=== PATIENT | female | born 1990 | race African-American/Black ===

== ENCOUNTER 2018-10-04 16:43 | Inpatient (IN) | payer OTHER ==
[2018-10-04] MEDS ORDERED: LACTATED RINGERS 1,000 ML IV ONE ×4 (17:02→18:30)
[2018-10-04] MEDS ORDERED: CITRIC ACID/SODIUM CITRATE 15 ML UDC PO ONE (17:03)
[2018-10-04 17:13] LABS: BASOPHILS % (AUTO) 0.3 %; EOSINOPHILS # (AUTO) 0.1 10^3/uL (0.0-0.7); EOSINOPHILS % (AUTO) 0.7 %; HGB - HEMOGLOBIN 11.9 g/dL (12.0-16.0); LYMPHOCYTES # (AUTO) 1.8 10^3/uL (1.5-3.5); MEAN CORPUSCULAR HEMOGLOBIN 27.2 pg (27.0-31.0); MEAN CORPUSCULAR HGB CONC 32.2 g/dL (32.0-36.0); MEAN CORPUSCULAR VOLUME 84.2 fL (81.0-99.0); MEAN PLATELET VOLUME 12.4 fL (7.9-10.8); MONOCYTES # (AUTO) 0.8 10^3/uL (0.0-1.0); MONOCYTES % (AUTO) 11.4 %; NEUTROPHILS # (AUTO) 4.1 10^3/uL (1.5-6.6); NEUTROPHILS % (AUTO) 60.2 %; PLT - PLATELET COUNT 170 10^3/uL (130-450); RED BLOOD COUNT 4.38 10^6/uL (4.20-5.40); RED CELL DISTRIBUTION WIDTH 14.1 % (12.0-15.0); WHITE BLOOD COUNT 6.8 x10^3/uL (4.8-10.8)
--- NOTE | 2018-10-04 17:34 | ANESTHESIA ---
Pre-Anesthesia VS, & Labs - Diagnosis non-reassuring heart rate and biophysics - Procedure section - NPO >8 hours - Is Patient ?: Yes - Lab Results Fish Bones: 10/04/18 17:04 Home Medications and Allergies Allergies/Adverse Reactions: Allergies Allergy/AdvReac Type Severity Reaction Status Date / Time No Known Drug Allergies Allergy Verified 10/04/18 17:04 Anes History & Medical History - Anesthetic History Anesthesia Complications: reports: No previous complications Exam General: Alert Dental: WNL Mouth Opening: Greater than 4 Fingerbreadths Mallampati classification: II Thyromental Distance: greater than 6 cm Respiratory: Lungs clear Cardiovascular: Regular rate Plan Anesthesia Type: Spinal Consent for Procedure(s) Verified and Reviewed: Yes Code Status: Attempt Resuscitation ASA classification: 2-Mild systemic disease Is this case an emergency?: Yes
--- NOTE | 2018-10-04 17:35 | PREOP HISTORY & PHYSICAL ---
DATE OF SERVICE: 10/04/2018 Physician: Anjum Evans MD IDENTIFICATION: The patient is a 28-year-old G2, P1, female whose due date is 10/17/2018 by [facility]. HISTORY OF PRESENT ILLNESS: She was seen in the clinic at [facility] today, at which time she was noted to have some dips in her heart beat. She was placed on the monitor with a baseline, which appeared to be good, but evidence of some dips. She underwent a biological profile, which was scored as a 4/8. She was also noted to have a nuchal cord x2, which was felt to be tight. For this reason, because they were closed, she was transferred to our hospital for evaluation and care. The patient relates that her care has been unremarkable. Previous delivery was unremarkable. Up until this point, she has been doing well. PAST MEDICAL HISTORY: Patient denies any hypertensive, diabetic, cardiac or pulmonary disease. PAST SURGICAL HISTORY: Positive for ankle repair. ALLERGIES: NONE KNOWN. CURRENT MEDICATIONS: vitamins. HABITS: The patient denies use of alcohol, tobacco, street or addictive drugs. 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 PHYSICAL EXAMINATION GENERAL: Well-developed, well-nourished, black female. She is in no acute distress. HEENT: Pupils are equal, round. Extraocular muscles intact. Thyroid is not palpably enlarged. HEART: Regular rate and rhythm without murmurs. LUNGS: Lung avila are clear without rales or wheezes. ABDOMEN: Gravid, nontender. She is not undergoing any contractions. GENITOURINARY: Her cervical examination is closed and very high and the head is not in the pelvis at this time. IMPRESSION: 1. A 38+ week gestation. 2. Nonreassuring testing. 3. Remote from delivery. 4. 4/8 biophysical profile with nuchal cord x2. At this particular time discussed with the patient in view of the risks of the prolonged need for induction it was decided to proceed on with section. Risks and benefits were explained to the patient, including those, but not limited to bleeding, infection, injury to pelvic organs, which include the uterus, tubes, ovaries, bowel, bladder and ureters. She is aware of the potential for DVT with PE as well as postoperative adhesion which could cause pain, bowel obstruction and infertility. TD: 10/04/2018 17:11 [email or web address]
[2018-10-04] MEDS ORDERED: miSOPROStol 200 MCG TABLET ONE (17:48)
[2018-10-04] MEDS ORDERED: CARBOPROST TROMETHAMINE 250 MCG/ML AMP IM ONE ×2 (17:49→21:26)
[2018-10-04] MEDS ORDERED: METHYLERGONOVINE 0.2 MG/ML AMP ONE (17:50)
[2018-10-04] MEDS: KETOROLAC 30 MG/ML VIAL IVP SCH (18:00)
[2018-10-04] MEDS ORDERED: OXYTOCIN 10 UNIT/ML VIAL IM ONE (18:47)
[2018-10-04] MEDS ORDERED: diphenhydrAMINE 25 MG CAPSULE PO PRN (18:47)
[2018-10-04] MEDS ORDERED: SODIUM CHLORIDE FLUSH 0.9% 10 ML SYRINGE IVP PRN (18:47)
[2018-10-04] MEDS ORDERED: ONDANSETRON 4 MG/2 ML VIAL IVP PRN (18:47)
[2018-10-04] MEDS ORDERED: LACTATED RINGERS 1,000 ML IV SCH (19:00)
--- NOTE | 2018-10-04 19:00 | OPERATIVE REPORT ---
Operative Report - General Admit Date: 10/04/18 Procedure Date: 10/04/18 Planned Procedure: PLTC/S Pre-Op Diagnosis: 38 week Gestation, nonreassureing antnataltesting, nucal cord times 2 Procedure Performed: PLTC/S Post Op Diagnosis: Same - Procedure Note Primary Surgeon: Anjum Evans MD Secondary Surgeon: Aniket Alvarado MD Anesthesia Provider: Kristin Luna CRNA Anesthesia Technique: Spinal Pathology: Placenta IV Fluids (mL): 2,000 Estimated Blood Loss (mL): 500 Urine Output (mL): 175 Complications: none - Other Other Information/Narrative: Dictation # [id number]
[2018-10-04] MEDS: ACETAMINOPHEN 500 MG TABLET PO SCH (20:51)
[2018-10-04] MEDS: oxyCODONE 5 MG TABLET PO PRN (20:51)
[2018-10-04] MEDS: DOCUSATE SODIUM 100 MG CAPSULE PO SCH (20:51)
--- NOTE | 2018-10-04 22:00 | OPERATIVE REPORT ---
DATE OF SERVICE: 10/04/2018 Physician: Anjum Evans MD PREOPERATIVE DIAGNOSES 1. A 38 weeks' gestation. 2. Nonreassuring testing. 3. Nuchal cord x2. 4. Transfer from [facility]. POSTOPERATIVE DIAGNOSES 1. A 38 weeks' gestation. 2. Nonreassuring testing. 3. Nuchal cord x2. 4. Transfer from [facility]. PROCEDURE PERFORMED: Planned primary low transverse section. SURGEON: Anjum Evans MD [employer] AUT[employer]IVE TECHNICIAN: Aniket Alvarado DO ANESTHESIA: Spinal with Marika Luna CRNA ESTIMATED BLOOD LOSS: 500 mL IV FLUIDS: 2000 mL URINE OUTPUT: 175 mL DRAINS AND PACKS: None. COMPLICATIONS: None. MATERIAL TO PATHOLOGY: Placenta DESCRIPTION OF PROCEDURE: Following adequate spinal anesthesia, the patient was placed in the supine position with a roll under the right hip. At this point, a timeout was performed in which the patie nt's identity and concerns were identified. She was then prepped and draped in the usual fashion. A Wren catheter was placed under sterile conditions. At this point, following assuring good anesthes ia, a Pfannenstiel incision was carried down through the subcutaneous tissue to the fascia. The fasc ia was incised transversely, then using both blunt and sharp dissection was freed from the rectus abd ominis and pyramidalis. The rectus was split along the midline. Peritoneum was entered high. Care was taken to avoid any injury to bowel or bladder. At this point, a bladder flap was developed using both blunt and sharp dissection. A low transverse uterine incision was accomplished using a #10 inocencio de with extension with bandage scissors. The head of the infant was noted not to be engaged in the p vonda. It was then delivered through the incision. The remainder of the infant was delivered withou t difficulty. The cord was doubly clamped and divided, and the infant was handed to the nursery team and pediatricians that were standing by. Cord blood samples were obtained. Following this, the nohemi james was exteriorized, wrapped in a moist lap, cleansing the internal portion with a dry lap. The cer vix was then dilated with a ring forceps and then the incision was closed using a running locking sut ure of 0 Vicryl with an imbricating layer of 0 Vicryl. The incision was inspected for bleeding. The re was a small bleeding at the right side of the incision, which was treated with a jjgilh-[id number] s uture. The uterus was tipped forward. The cul-de-sac was suctioned of any clot. Estimated blood lo ss was done at this time and then the pelvis was irrigated with copious amounts of sterile saline. T he uterus was delivered back in the abdominal cavity, and following this the gutters were likewise in spected. The incision was inspected. No further bleeding was noted, so the incision was closed usin g 2-0 Vicryl in a running suture. Rectus was then reapproximated at the upper apex of the pyramidali s with a single [id number]. The rectus was inspected and no bleeding noted, so the fascia was c losed utilizing looped PDS. The subcutaneous tissue was irrigated, no bleeding noted, and so the sub cutaneous tissue was closed using 2-0 Vicryl. The incision itself was closed using 4-0 Monocryl and the incision was dressed with Mastisol, as well as Steri-Strips. There was some oozing coming from t he incision and this was treated with direct pressure and the incision was responded well. The proce dure was then terminated. The patient was taken to recovery in stable condition. Sponge and needle counts were correct. TD: 10/04/2018 19:08
[2018-10-05] MEDS: KETOROLAC 30 MG/ML VIAL IVP SCH ×3 (00:35→13:29)
[2018-10-05] MEDS: oxyCODONE 5 MG TABLET PO PRN ×6 (00:35→23:05)
[2018-10-05] MEDS ORDERED: SODIUM CHLORIDE FLUSH 0.9% 10 ML SYRINGE IVP SCH (01:00)
[2018-10-05] MEDS: SIMETHICONE CHEW 80 MG TABLET PO SCH ×4 (02:03→21:08)
[2018-10-05] MEDS: ACETAMINOPHEN 500 MG TABLET PO SCH ×3 (05:01→21:08)
[2018-10-05 06:10] LABS: BASOPHILS % (AUTO) 0.3 %; EOSINOPHILS % (AUTO) 0.4 %; HGB - HEMOGLOBIN 10.5 g/dL (12.0-16.0); LYMPHOCYTES % (AUTO) 13.9 %; MEAN CORPUSCULAR HEMOGLOBIN 26.5 pg (27.0-31.0); MEAN CORPUSCULAR HGB CONC 31.9 g/dL (32.0-36.0); MEAN CORPUSCULAR VOLUME 83.1 fL (81.0-99.0); MEAN PLATELET VOLUME 12.4 fL (7.9-10.8); MONOCYTES # (AUTO) 0.9 10^3/uL (0.0-1.0); MONOCYTES % (AUTO) 12.4 %; NEUTROPHILS # (AUTO) 5.2 10^3/uL (1.5-6.6); NEUTROPHILS % (AUTO) 72.6 %; PLT - PLATELET COUNT 123 10^3/uL (130-450); RED BLOOD COUNT 3.96 10^6/uL (4.20-5.40); RED CELL DISTRIBUTION WIDTH 14.1 % (12.0-15.0); WHITE BLOOD COUNT 7.2 x10^3/uL (4.8-10.8)
--- NOTE | 2018-10-05 07:22 | PROVIDER PROGRESS NOTE ---
Subjective - General Admit Date: 10/04/18 Procedure Date: 10/04/18 Post Op Days: 1 Procedure Performed: PLTC/S - Review of Systems Wound/Incisions: positive: Dressing dry and intact Drain Type: none General: positive: No symptoms (Pain 2/10 no flatus, arriaza draining) HEENT: positive: No symptoms Pulmonary: positive: No symptoms Cardiovascular: positive: No symptoms Gastrointestinal: positive: No symptoms Genitourinary: positive: No symptoms Musculoskeletal: positive: No symptoms Objective - Patient Data Reviewed Vital Signs: Yes Vital Signs: Vital Signs x48h Temp Pulse Resp BP Pulse Ox 10/05/18 04:59 36.9 C 69 16 97/50 L 98 10/05/18 02:57 36.8 C 91 16 116/64 99 10/05/18 01:30 15 98 10/05/18 00:21 36.4 C L 79 15 111/47 L 99 Weight: Weight 10/03/18 10/04/18 10/05/18 23:59 23:59 23:59 Weight (kg) 110 kg Intake & Output: Intake and Output Totals x24h 10/03/18 10/04/18 10/05/18 23:59 23:59 23:59 Output Total 575 900 Balance -575 900 - Lab Results Lab Results: 10/05/18 05:55 Other Lab Results: Lab Results x24hrs 10/05/18 10/04/18 10/04/18 Range/Units 05:55 17:15 17:04 WBC 7.2 (4.8-10.8) x10^3/uL RBC 3.96 L (4.20-5.40) 10^6/uL Hgb 10.5 L (12.0-16.0) g/dL Hct 32.9 L (37.0-47.0) % MCV 83.1 (81.0-99.0) fL MCH 26.5 L (27.0-31.0) pg MCHC 31.9 L (32.0-36.0) g/dL RDW 14.1 (12.0-15.0) % Plt Count 123 L (130-450) 10^3/uL MPV 12.4 H (7.9-10.8) fL Neut # (Auto) 5.2 (1.5-6.6) 10^3/uL Lymph # (Auto) 1.0 L (1.5-3.5) 10^3/uL Phelps # (Auto) 0.9 (0.0-1.0) 10^3/uL Eos # (Auto) 0.0 (0.0-0.7) 10^3/uL Baso # (Auto) 0.0 (0.0-0.1) 10^3/uL Absolute Nucleated RBC 0.00 x10^3/uL Nucleated RBC % 0.0 /100WBC Blood Type O POSITIVE Blood Type Recheck O POSITIVE 10/04/18 Range/Units 17:04 WBC 6.8 (4.8-10.8) x10^3/uL RBC 4.38 (4.20-5.40) 10^6/uL Hgb 11.9 L (12.0-16.0) g/dL Hct 36.9 L (37.0-47.0) % MCV 84.2 (81.0-99.0) fL MCH 27.2 (27.0-31.0) pg MCHC 32.2 (32.0-36.0) g/dL RDW 14.1 (12.0-15.0) % Plt Count 170 (130-450) 10^3/uL MPV 12.4 H (7.9-10.8) fL Neut # (Auto) 4.1 (1.5-6.6) 10^3/uL Lymph # (Auto) 1.8 (1.5-3.5) 10^3/uL Phelps # (Auto) 0.8 (0.0-1.0) 10^3/uL Eos # (Auto) 0.1 (0.0-0.7) 10^3/uL Baso # (Auto) 0.0 (0.0-0.1) 10^3/uL Absolute Nucleated RBC 0.00 x10^3/uL Nucleated RBC % 0.0 /100WBC Blood Type Blood Type Recheck - Current Medications Current Medications: Current Medications Generic Name Dose Route Start Last Admin Trade Name Freq PRN Reason Stop Dose Admin Acetaminophen 1,000 mg 10/04/18 19:00 10/05/18 05:01 Tylenol PO 1,000 mg Q8H GISELL Administration Docusate Sodium 100 mg 10/04/18 21:00 10/04/18 20:51 Colace 100mg Capsule PO 100 mg BID GISELL Administration Lactated Ringer's 1,000 mls @ 100 mls/hr 10/04/18 19:00 10/04/18 22:07 Lr IV 100 mls/hr .Q10H GISELL Administration Ketorolac Tromethamine 30 mg 10/04/18 19:00 10/05/18 06:55 Toradol Inj (30mg) IVP 10/05/18 13:01 30 mg Q6H GISELL Administration Ondansetron HCl 4 mg 10/04/18 18:47 10/05/18 00:20 Zofran Inj IVP 4 mg Q4H PRN Administration Nausea / Vomiting Oxycodone HCl 5 mg 10/04/18 18:47 10/05/18 05:00 Roxicodone PO 5 mg Q4HR PRN Administration PAIN Simethicone 80 mg 10/04/18 22:00 10/05/18 05:01 Mylicon PO 80 mg TID GISELL Administration - Physical Exam Wound/Incisions: positive: Dressing dry and intact General Appearance: positive: No acute distress, Alert Eyes Bilateral: positive: PERRL Respiratory: positive: Chest non-tender, No respiratory distress, Breath sounds nml Cardiovascular: positive: Regular rate & rhythm, No murmur, No gallop Abdomen: positive: Nml bowel sounds, No distention, Tenderness (mild) Back: negative: CVA tenderness (R), CVA tenderness (L) Skin: positive: Color nml, No rash Extremities: negative: Calf tenderness, Robyn's sign/cords Neurologic/Psychiatric: positive: Oriented x3 Impression/Plan - Problem List Problem List: POD # 1 progressing well remove arriaza noon ambulate
[2018-10-05] MEDS: DOCUSATE SODIUM 100 MG CAPSULE PO SCH ×2 (09:10→21:08)
[2018-10-05] MEDS ORDERED: MORPHINE PF 5 MG/10 ML AMP EP ONE (15:09)
[2018-10-05] MEDS ORDERED: ACETAMINOPHEN 1,000 MG/100 ML 100 ML IV ONE (15:09)
[2018-10-05] MEDS ORDERED: KETOROLAC 30 MG/ML VIAL IVP ONE (15:09)
[2018-10-05] MEDS ORDERED: OXYTOCIN 10 UNIT/ML VIAL IV ONE (15:09)
[2018-10-05] MEDS: IBUPROFEN 800 MG TABLET PO PRN (21:08)
[2018-10-06] MEDS: oxyCODONE 5 MG TABLET PO PRN ×3 (03:14→14:25)
[2018-10-06] MEDS: ACETAMINOPHEN 500 MG TABLET PO SCH ×2 (05:20→14:25)
--- NOTE | 2018-10-06 08:48 | PROVIDER PROGRESS NOTE ---
Subjective - General Admit Date: 10/04/18 Procedure Date: 10/04/18 Post Op Days: 2 Procedure Performed: PLTC/S - Review of Systems Wound/Incisions: positive: Healing well Drain Type: none General: positive: No symptoms (Pain 2/10 no flatus, voiding, passing flatus) HEENT: positive: No symptoms Pulmonary: positive: No symptoms Cardiovascular: positive: No symptoms Gastrointestinal: positive: No symptoms Genitourinary: positive: No symptoms Musculoskeletal: positive: No symptoms Objective - Patient Data Reviewed Vital Signs: Yes Vital Signs: Vital Signs x48h Temp Pulse Resp BP Pulse Ox 10/06/18 02:00 37.1 C 80 16 123/76 98 10/06/18 01:36 37.3 C 79 16 126/78 99 Weight: Weight 10/04/18 10/05/18 10/06/18 23:59 23:59 23:59 Weight (kg) 110 kg Intake & Output: Intake and Output Totals x24h 10/04/18 10/05/18 10/06/18 23:59 23:59 23:59 Intake Total 1360 Output Total 575 1700 Balance -575 -340 - Lab Results Lab Results: 10/05/18 05:55 - Current Medications Current Medications: Current Medications Generic Name Dose Route Start Last Admin Trade Name Freq PRN Reason Stop Dose Admin Acetaminophen 1,000 mg 10/04/18 19:00 10/06/18 05:20 Tylenol PO 1,000 mg Q8H GISELL Administration Docusate Sodium 100 mg 10/04/18 21:00 10/05/18 21:08 Colace 100mg Capsule PO 100 mg BID GISELL Administration Lactated Ringer's 1,000 mls @ 100 mls/hr 10/04/18 19:00 10/05/18 05:30 Lr IV Infused .Q10H GISELL Infusion Ibuprofen 800 mg 10/05/18 07:23 10/05/18 21:08 Motrin PO 800 mg BID PRN Administration PAIN Ondansetron HCl 4 mg 10/04/18 18:47 10/05/18 00:20 Zofran Inj IVP 4 mg Q4H PRN Administration Nausea / Vomiting Oxycodone HCl 5 mg 10/04/18 18:47 10/06/18 03:14 Roxicodone PO 5 mg Q4HR PRN Administration PAIN Simethicone 80 mg 10/04/18 22:00 10/05/18 21:08 Mylicon PO 80 mg TID GISELL Administration Sodium Chloride 10 ml 10/04/18 18:47 10/05/18 13:29 Normal Saline Flush 0.9% IVP 10 ml PRN PRN Administration NEEDED PER PROVIDER ORDERS Sodium Chloride 10 ml 10/05/18 01:00 10/05/18 13:29 Normal Saline Flush 0.9% IVP 10 ml 0100,0900,1700 GISELL Administration - Physical Exam Wound/Incisions: positive: Healing well, No drainage General Appearance: positive: No acute distress, Alert Respiratory: positive: Chest non-tender, No respiratory distress, Breath sounds nml Cardiovascular: positive: Regular rate & rhythm, No murmur, No gallop Abdomen: positive: Non-tender, Nml bowel sounds, No distention Back: negative: CVA tenderness (R), CVA tenderness (L) Extremities: negative: Calf tenderness, Robyn's sign/cords Neurologic/Psychiatric: positive: Oriented x3 Impression/Plan - Problem List Problem List: POD # 2 progressing well consider Discharge ain the afternoon. Discharge meds Oxycodone 5 mg #25 Motrin 800 mg # 30 Colace 100 mg # 30
[2018-10-06] MEDS: DOCUSATE SODIUM 100 MG CAPSULE PO SCH (09:28)
[2018-10-06] MEDS: SIMETHICONE CHEW 80 MG TABLET PO SCH ×2 (09:28→14:25)
[2018-10-06] MEDS: IBUPROFEN 800 MG TABLET PO PRN ×2 (09:28→17:59)
[2018-10-06 16:43] VITALS: BP 128/67
--- NOTE | 2018-10-06 17:46 | Discharge Plan ---
Discharge Plan Problem Reviewed?: Yes Disposition: Home, Self Care Condition: Good Diet: Regular Activity Restrictions: pelvic rest Shower Restrictions: No Driving Restrictions: Yes (not while on narcotics) Weight Bearing: Full Weight No Smoking: If you smoke, Please STOP! Call for help.
--- NOTE | 2018-10-12 16:07 | DISCHARGE SUMMARY ---
Physician: Anjum Evans MD DATE OF ADMISSION: 10/04/2018 DATE OF DISCHARGE: 10/06/2018 ADMITTING DIAGNOSES 1. A 28-year-old G2, P1. Due date is 10/17/2018. 2. Active labor. DISCHARGE DIAGNOSES 1. A 28-year-old G2, P1. 2. Nonreassuring monitoring. 3. Remote from delivery. PROCEDURE: Primary low transverse section. PRESENTING HISTORY: The patient is a 28-year-old G2, P1 female who is a patient of [facility]. She had been seen by her OB provider there throughout the entire . She had early v isits and good OB care. She presented to the base, at which time she was noted to have some dips in the heartbeat. She was placed on the monitor. She had a biophysical profile, which was noted to be 5/8. There were also 2 nuchal cords found at time of ultrasound. Because they were closed, they tian cted to transfer her to the hospital for continued care. LABORATORIES: CBC on admission showed a white count of 6.8, hemoglobin 11.9. Platelets were 170. F irst day postop, white count was 7.2. Hemoglobin was 10.5. Platelets were 123. HOSPITAL COURSE: The patient presented to labor and delivery and because of nonreassuring lotus toring, the low biophysical profile, the patient being remote from delivery, it was decided to procee d on with section. This was performed without difficulty. At time of delivery, a live male with clear amniotic fluid was noted with a tight nuchal cord x2. Her course was u nremarkable. Diet was returned. Her control of her lower extremities was also returned. She was di scharged to home on the second day postop. DISCHARGE MEDICATIONS Those of: 1. Oxycodone 5 mg, #25. 2. Motrin 800 mg, #30. 3. Colace 100 mg, #30. She is instructed to follow up in the clinic in 1 week, at which time would will be assessed. TD: 10/12/2018 15:35
== END 2018-10-06 18:15 | disposition home or self-care (01) | DRG 788 ==
LOC: WFO 16:43 → FBP 16:44 → WFO 17:04 → FBP 17:05
PROVIDERS: ADMIT Obstetrics & Gynecology; ATTEND Obstetrics & Gynecology
PROC: 10D00Z1 Extraction of Products of Conception, Low, Open Approach (ICD-10-PCS; principal; 2018-10-04 17:08)
DX: O76 Abnormality in fetal heart rate and rhythm complicating labor and delivery (principal); O69.2XX0 Labor and delivery complicated by other cord entanglement, with compression, not applicable or unspecified; Z3A.38 38 weeks gestation of pregnancy; Z37.0 Single live birth
CPT/HCPCS: 36415; 85025; 86900; 86901; A9270; J0131; J7120; 86850

== ENCOUNTER 2019-10-04 15:49 | Emergency (ER) | payer OTHER ==
--- NOTE | 2019-10-04 16:43 | ED Physician Documentation ---
History of Present Illness - Stated complaint Stated Complaint: SORE THROAT - Chief complaint Chief Complaint: Heent - History obtained from History obtained from: Patient - History of Present Illness Timing: Prior to arrival, How many days ago (2) Pain level max: 8 Pain level now: 2 - Additonal information Additional information: 29-year-old female presents to the emergency department with chief complaint of a sore throat. She states that about 2 days ago she was getting ready to eat some pasta and she felt something enter her mouth and throat. She feels like her throat was scratched. Since then she has been having difficulty swallowing and feels that her voice is not normal. She has had no cough or fever. She has no tonsillar exudate. At present she is able to swallow normally. Review of Systems Constitutional: denies: Fever, Chills Throat: reports: Sore throat, Swallowed foreign body (possible). denies: Oral lesions / sores, Swollen tonsils Cardiac: reports: Chest pain / pressure, Palpitations Respiratory: reports: Dyspnea, Cough PD PAST MEDICAL HISTORY - Present Medications Home Medications: Ambulatory Orders Medication Instructions Recorded Confirmed Lidocaine HCl [Lidocaine HCl 15 ml MM Q6HR PRN #100 ml 10/04/19 Viscous] - Allergies Allergies/Adverse Reactions: Allergies Allergy/AdvReac Type Severity Reaction Status Date / Time No Known Drug Allergies Allergy Verified 10/04/19 15:53 - Social History Smoking Status: Never smoker PD ED PE NORMAL - General General: Alert and oriented X 3, No acute distress, Well developed/nourished - HEENT HEENT: PERRL, EOMI, Ears normal, Other (No tonsillar exudate. Uvula is midline. No soft palate asymmetry. Patient able to swallow normally. She has full range of motion of her neck in all planes) - Neck Neck: Supple, no meningeal sign, No bony TTP, No adenopathy - Cardiac Cardiac: RRR, No murmur - Respiratory Respiratory: No respiratory distress Results - Vitals Vitals: Vital Signs - 24 hr 10/04/19 10/04/19 15:50 17:07 Temperature 36.6 C 36.8 C Heart Rate 66 79 Respiratory 18 18 Rate Blood Pressure 135/80 H 137/93 H O2 Saturation 100 100 Oxygen O2 Source Room air - Labs Labs: Laboratory Tests 10/04/19 17:14 Group A Strep Rapid Negative - Rads (name of study) soft tissue neck Radiology: EMP read indepedently (No foreign body no soft tissue neck swelling) PD MEDICAL DECISION MAKING - ED course Complexity details: reviewed results, d/w patient ED course: 29-year-old female here with 3 to 4 days of acute sore throat. She feels like she may have swallowed something that abraded her esophagus. - Her ENT exam is relatively benign. Normal posterior oropharynx without exudate or findings consistent with peritonsillar abscess. Her rapid strep is negative. She does have a normal swallow. She is no neck lymphadenopathy and is phonating normally. Soft tissue of the neck was completed and it does not show any findings of a foreign body or narrowing of her airway. I have recommended patient to continue with ibuprofen at home and I will prescribe a limited lidocaine. Emergent return precautions were discussed. Departure - Departure Clinical Impression: Sore throat Condition: Stable Instructions: ED Neck Pain No Trauma Prescriptions: Lidocaine HCl [Lidocaine HCl Viscous] 15 ml MM Q6HR PRN #100 ml PRN Reason: Pain Comments: The x-ray of your neck looks normal. We do not see any findings to suggest that there is a foreign body in there or that there is narrowing of your airways. The rapid strep test was also negative. I am unsure what you swallowed that may have caused this pain however I would expect this to get better over the next few days. I have prescribed a limited amount of viscous lidocaine that you can use 2-3 times a day for severe discomfort. Otherwise continue with the ibuprofen [id number]. I would also recommend that you stick to soft foods and liquids until this resolves. Please return here if you are unable to swallow or begin to drool. Return here if you are unable to turn your neck or develop a high fever.
[2019-10-04 17:08] VITALS: BP 137/93
[2019-10-04] MEDS ORDERED: LIDOCAINE VISCOUS 2% 15 ML UDC MM STA (17:20)
[2019-10-04 17:23] LABS: RAPID STREP SCREEN Negative (Negative)
--- NOTE | 2019-10-04 18:14 | XRAY Report ---
PROCEDURE: Neck Soft Tissue INDICATIONS: FB sensation in throat TECHNIQUE: 2 views of the neck were acquired. COMPARISON: None. FINDINGS: Airway: The airway appears patent. Soft tissues: Prevertebral soft tissues are normal in thickness. The epiglottis and aryepiglottic f olds appear normal. No soft tissue gas. Bones: No suspicious bony lesions. Visualized cervical spine is normally aligned. IMPRESSION: Normal soft tissue neck. No radial opaque foreign body. If clinical symptoms persist or clinical susp icion is high, CT is recommended. Reviewed by: Elizabet Tabor MD on 10/04/2019 6:13 PM PDT Approved by: Elizabet Tabor MD on 10/04/2019 6:13 PM PDT Station ID: [id number]
== END 2019-10-04 17:54 | disposition home or self-care (01) ==
LOC: ED 15:49
DX: R07.0 Pain in throat (principal)
CPT/HCPCS: 70360; 87070; 87430; 99283; 99284